=== PATIENT | female | born 1980 | race Caucasian/White ===

== ENCOUNTER 2022-01-19 11:09 | Emergency (ER) | payer OTHER, SELFPAY ==
[2022-01-19 11:29] VITALS: BP 138/87; PULSE 90; RESP 16; TEMP 37.2; O2SAT 99
--- NOTE | 2022-01-19 12:30 | ED.GENADULT ---
HPI - General Adult General Chief complaint: Animal Bite Stated complaint: Animal Bite Source: patient Mode of arrival: ambulatory Limitations: no limitations History of Present Illness HPI narrative: Patient presents for evaluation of dog bites. She indicates she was going to a family member's house yesterday. When she got out of the car the neighbor's dog jumped on her and bit her in the right arm. She reports puncture wounds to right forearm, and an abrasion and bruising to right thigh. The dog's chuck tender was there at the time and states the dog is up-to-date on vaccinations. Animal [facility] has been contacted for confirmation of this. Patient's last tetanus unknown. Patient is not diabetic. She does not smoke. Reports minimal pain in the affected area. No fever, chills, nausea, vomiting, purulence from the wounds. Related Data Allergies Allergy/AdvReac Type Severity Reaction Status Date / Time No Known Allergies Allergy Unknown Verified 01/19/22 11:38 Review of Systems Review of Systems: CONSTITUTIONAL: Denies fever, chills, or sweats. EYES: Denies visual changes, redness, or discharge. ENT: Denies rhinorrhea, congestion, sore throat, or otalgia. CARDIOVASCULAR: Denies chest pain, palpitations, or edema. RESPIRATORY: Denies cough or dyspnea. GASTROINTESTINAL: Denies abdominal pain, nausea, vomiting, or diarrhea. GENITOURINARY: Denies dysuria or hematuria. SKIN: Reports puncture wounds to the right forearm, abrasion to the right thigh with associated bruising MUSCULOSKELETAL: Denies back pain, joint pain, or myalgia. NEUROLOGIC: Denies headache, numbness, dizziness, or weakness. PSYCHIATRIC: Denies anxiety or depression. [facility] Past Medical History Medical History No pertinent past medical history Surgical History Surgical History No pertinent past surgical history Family History Family History Mother Family history non-contributory Social History Social History Smoking status: Never smoker Gender identity (if verbalized by the patient): Female Spiritual care concerns: No Exam Narrative: GENERAL: Well-appearing, well-nourished, and in no acute distress. HEAD: Normocephalic, atraumatic. EYES: PERRLA and EOMI. ENT: Nares clear, no rhinorrhea or epistaxis. Mucous membranes moist. Oropharynx without tonsillar hypertrophy exudate or other lesions. Bilateral TMs pearly wiseman nonbulging NECK: Supple. No adenopathy or masses. No carotid bruits or JVD CHEST: Clear to auscultation. No respiratory distress. No wheezes rales or rhonchi HEART: Regular rate and rhythm. No murmur heard. Normal peripheral pulses. ABDOMEN: Soft, nontender, nondistended, normal active bowel sounds. EXTREMITIES: Normal range of motion. No edema. SKIN: There are several linear puncture wounds to the right forearm which are 4 x 4 cm in size around entirety of wounds combined. There is a linear abrasion to right thigh with surrounding ecchymosis. NEURO: No focal deficits. Alert and oriented x3. PSYCH: Normal mood and affect. Course Course Emergency Course: This is a 41-year-old female who presented for evaluation of dog bites. History provided states that dog is up-to-date on vaccinations. Patient was given tetanus here. There is no evidence of drainable fluid collection on my exam. Bleeding controlled. Wounds are very superficial so imaging not indicated. Will dc with augmentin. Follow up with primary this coming week and go to the ER for worsening symptoms. Pt in agreement with plan of care. Level of Care: Express Care Visit Vital Signs Vital signs: Vital Signs Temperature 37.2 C 01/19/22 11:29 Pulse Rate 90 01/19/22 11:29 Respiratory Rate 16 01/19/22 11:29 Blood
[2022-01-19] MEDS: TETANUS,DIPHTHERIA,AC PERTUSSIS ADULT (0.5 ML) BOOSTRIX IM (12:38)
== END 2022-01-19 12:40 | disposition home or self-care (01) ==
PROVIDERS: Emergency Provider Nurse Practitioner; PCP Family Medicine
DX: S51.831A Puncture wound without foreign body of right forearm, initial encounter (principal); W54.0XXA Bitten by dog, initial encounter; Z23 Encounter for immunization
CPT/HCPCS: 90471; 90715; 99213; G0463